=== PATIENT | male | born 1940 | race Caucasian/White ===

== ENCOUNTER → 2018-06-27 | Outpatient (CLI) | payer MEDICARE ==
--- NOTE | 2018-06-27 13:48 | Diagnostic Imaging Report ---
INDICATION: ACUTE UPPER RESPIRATORY INFECTION COMPARISON: None FINDINGS: Frontal and lateral views of the chest demonstrate normal heart size and pulmonary vascularity. Lung chairez suggest increase parenchymal opacities within the right lower lobe suggestive of pneumonia. Left lung is relatively clear. No large effusion or pneumothorax is seen on either side. Bony structures show no gross acute abnormalities. IMPRESSION: 1. Findings suspicious for right lower lobe pneumonia. Followup to resolution is recommended. Dictated by: Dictated on workstation # [id number]
== END ==
LOC: RAD FS 13:25
PROVIDERS: ATTEND Internal Medicine
DX: J06.9 Acute upper respiratory infection, unspecified (principal)
CPT/HCPCS: 71046

== ENCOUNTER → 2018-07-04 | Outpatient (CLI) | payer MEDICARE ==
--- NOTE | 2018-07-04 14:37 | Diagnostic Imaging Report ---
Indication: Pneumonia followup. Compared: 06/27/2018 Right lower lobe infiltrate is improved but incompletely resolved. There are background changes of COPD chronic. There is no effusion or pneumothorax. There is no failure pattern. Impression: Improvements but incompletely resolved right lower lobe pneumonia with no adverse interval development. Chronic COPD as a stable background finding noted. Dictated by: Dictated on workstation # [id number]
== END ==
LOC: RAD FS 13:54
PROVIDERS: ATTEND Internal Medicine
DX: J18.1 Lobar pneumonia, unspecified organism (principal); J44.9 Chronic obstructive pulmonary disease, unspecified
CPT/HCPCS: 71046

== ENCOUNTER → 2018-07-20 | Outpatient (CLI) | payer MEDICARE ==
--- NOTE | 2018-07-20 09:28 | Diagnostic Imaging Report ---
Indication: Pneumonia Comparison made with prior examination from 07/04/2018 Findings: There is COPD. Heart size is stable. The mediastinum is unremarkable. Persistent patchy right base infiltrate although there has been continual improvement. There is no pneumothorax. IMPRESSION: Continual improvement of the right lower lobe infiltrate. COPD. Dictated by: Dictated on workstation # [id number]
== END ==
LOC: RAD FS 08:26
PROVIDERS: ATTEND Internal Medicine
DX: J18.9 Pneumonia, unspecified organism (principal); J44.9 Chronic obstructive pulmonary disease, unspecified
CPT/HCPCS: 71046

== ENCOUNTER 2018-11-27 10:19 | Emergency (ER) | payer MEDICARE ==
[~2018-11-27] VITALS: Ht 167.6 cm; Wt 63.5 kg
--- NOTE | 2018-11-27 10:32 | ED Neurological Problem ---
General Source: patient, family, EMS Exam Limitations: no limitations History of Present Illness Date Seen by Provider: Nov 27, 2018 Time Seen by Provider: 10:27 Initial Comments This 78-year-old white male presents after a syncopal episode occurred at [facility] this morning with associated questionable seizure activity. The patient was sitting in a chair when he began to feel weak and then became unresponsive for approximately 30 seconds. There was no post ictal phase. Patient denies associated headache or lateralizing or localizing neurologic complaints. He denied palpitations or chest pain. He had no vomiting. On arrival to emergency department patient was awake and alert and had no residual symptoms. The patient has been having similar but less intense episodes for the last 3 years that appear to be progressive in nature. In addition the patient is having episodes of transient confusion. 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 Patient's father suffered from vascular dementia and mini strokes. The patient's past medical history other than hypothyroidism is essentially unremarkable. Patient is followed by his accounts receivable coordinator at [facility]. Allergies and Home Medications Allergies Coded Allergies: No Known Drug Allergies (Unverified , 11/27/18) Patient Home Medication List Home Medication List Reviewed: Yes Review of Systems Review of Systems Constitutional: see HPI; No chills; weakness Eyes: Blurred Vision Ears, Nose, Mouth, Throat: denies ear pain Respiratory: No cough Cardiovascular: No chest pain, No palpitations Gastrointestinal: No abdominal pain, No diarrhea, No nausea, No vomiting Genitourinary: no symptoms reported Musculoskeletal: no symptoms reported Skin: no symptoms reported Psychiatric/Neurological: Tonic Clonic Seizures (patient sustained a possible seizure at the time of the syncope.), Weakness Endocrine: No Symptoms Reported Hematologic/Lymphatic: No Symptoms Reported Past [id number] Hx Past Med/Social Hx: Reviewed Nursing Past Med/Soc Hx Physical Exam Vital Signs Capillary Refill : Height, Weight, BMI Height: '" Weight: lbs. oz. kg; BMI Method: General Appearance: WD/WN, no apparent distress HEENT: normal ENT inspection Neck: full range of motion, supple, normal inspection Respiratory: lungs clear, normal breath sounds, no respiratory distress Cardiovascular: normal peripheral pulses, regular rate, rhythm, no murmur Gastrointestinal: normal bowel sounds, non tender, soft Back: normal inspection, no CVA tenderness Extremities: normal range of motion, non-tender, normal inspection, no pedal edema Neurologic/Psychiatric: no motor/sensory deficits, alert, normal mood/affect, oriented x 3 Crainal Nerves: normal hearing, normal speech, PERRL Skin: normal color, warm/dry; No rash Progress/Results/Core Measures Results/Orders Lab Results Laboratory Tests Test 11/27/18 10:30 11/27/18 11:24 Range/Units White Blood Count 4.9 4.3-11.0 10^3/uL Red Blood Count 4.66 4.35-5.85 10^6/uL Hemoglobin 15.2 13.3-17.7 G/DL Hematocrit 44 40-54 % Mean Corpuscular Volume 94 80-99 FL Mean Corpuscular Hemoglobin 33 25-34 PG Mean Corpuscular Hemoglobin Concent 35 32-36 G/DL Red Cell Distribution Width 11.4 10.0-14.5 % Platelet Count 183 130-400 10^3/uL Mean Platelet Volume 10.2 7.4-10.4 FL Neutrophils (%) (Auto) 64 42-75 % Lymphocytes (%) (Auto) 16 12-44 % Monocytes (%) (Auto) 13 H 0-12 % Eosinophils (%) (Auto) 5 0-10 % Basophils (%) (Auto) 1 0-10 % Neutrophils # (Auto) 3.2 1.8-7.8 X 10^3 Lymphocytes # (Auto) 0.8 L 1.0-4.0 X 10^3 Monocytes # (Auto) 0.7 0.0-1.0 X 10^3 Eosinophils # (Auto) 0.3 0.0-0.3 10^3/uL Basophils # (Auto) 0.1 0.0-0.1 10^3/uL Sodium Level 132 L 135-145 MMOL/L Potassium Level 4.3 3.6-5.0 MMOL/L Chloride Level 92 L 98-107 MMOL/L Carbon Dioxide Level 28 21-32 MMOL/L Anion Gap 12 5-14 MMOL/L Blood Urea Nitrogen 16 7-18 MG/DL Creatinine 1.11 0.60-1.30 MG/DL Estimat Glomerular Filtration Rate > 60 BUN/Creatinine Ratio 14 Glucose Level 135 H 70-105 MG/DL Calcium Level 9.1 8.5-10.1 MG/DL Corrected Calcium 9.1 8.5-10.1 MG/DL Total Bilirubin 0.5 0.1-1.0 MG/DL Aspartate Amino Transf (AST/SGOT) 18 5-34 U/L Alanine Aminotransferase (ALT/SGPT) 18 0-55 U/L Alkaline Phosphatase 77 40-136 U/L Troponin I < 0.30 <0.30 NG/ML Total Protein 6.1 L 6.4-8.2 GM/DL Albumin 4.0 3.2-4.5 GM/DL Urine Color YELLOW Urine Clarity CLEAR Urine pH 7.0 5-9 Urine Specific [place] 1.010 L 1.016-1.022 Urine Protein NEGATIVE NEGATIVE Urine Glucose (UA) NEGATIVE NEGATIVE Urine Ketones NEGATIVE NEGATIVE Urine Nitrite NEGATIVE NEGATIVE Urine Bilirubin NEGATIVE NEGATIVE Urine Urobilinogen 0.2 NORMAL MG/DL Urine Leukocyte Esterase NEGATIVE NEGATIVE Urine RBC (Auto) NEGATIVE NEGATIVE Urine RBC NONE /HPF Urine WBC NONE /HPF Urine Squamous Epithelial Cells 0-2 /HPF Urine Crystals PRESENT H /LPF Urine Amorphous Sediment FEW TONE PHOSPHATE H /LPF Urine Bacteria TRACE /HPF Urine Casts NONE /LPF Urine Mucus NONE /LPF Urine Culture Indicated NO My Orders Orders - SHELTON HAMMOND MD Ct Head Wo (11/27/18 10:48) Troponin I (11/27/18 10:48) Cbc With Automated Diff (11/27/18 10:48) Comprehensive Metabolic Panel (11/27/18 10:48) Ua Culture If Indicated (11/27/18 10:48) Ekg Tracing (11/27/18 10:50) Progress Progress Note : Time: 12:36 Progress Note Patient's workup in the emergency department demonstrated microvascular changes on the CT of the head. I placed a call to the patient's accounts receivable coordinator at [facility], Dr.Marie Loredo, and am awaiting her call. : The patient to follow up closely with her early next week after the holiday weekend. I asked the patient to rest at home and to return if any further episodes. I discussed findings with patient and his . They're in agreement with treatment plan. Departure Impression Primary Impression: Syncope Qualified Codes: R55 - Syncope and collapse Disposition: 01 HOME, SELF-CARE Condition: Improved Departure-Patient Inst. Decision time for Depature: 12:39 Referrals: LITTLE ROD MD (PCP) Primary Care Physician Patient Instructions: Syncope (Fainting) Add. Discharge Instructions: Follow-up with your personal physician after the holiday. Rest at home this weekend. Return if any further episodes. SHELTON HAMMOND MD Nov 27, 2018 10:32
[2018-11-27 10:58] LABS: HEMOGLOBIN 15.2 G/DL (13.3-17.7); MEAN CORPUSCULAR HEMOGLOBIN 33 PG (25-34); WHITE BLOOD COUNT 4.9 10^3/uL (4.3-11.0)
[2018-11-27 10:59] LABS: BASOPHILS % (AUTO) 1 % (0-10); EOSINOPHILS # (AUTO) 0.3 10^3/uL (0.0-0.3); EOSINOPHILS % (AUTO) 5 % (0-10); HEMATOCRIT 44 % (40-54); LYMPHOCYTES # (AUTO) 0.8 X 10^3 (1.0-4.0); LYMPHOCYTES % (AUTO) 16 % (12-44); MEAN CORPUSCULAR HGB CONC 35 G/DL (32-36); MEAN CORPUSCULAR VOLUME 94 FL (80-99); MEAN PLATELET VOLUME 10.2 FL (7.4-10.4); MONOCYTES # (AUTO) 0.7 X 10^3 (0.0-1.0); MONOCYTES % (AUTO) 13 % (0-12); NEUTROPHILS # (AUTO) 3.2 X 10^3 (1.8-7.8); NEUTROPHILS % (AUTO) 64 % (42-75); PLATELET COUNT 183 10^3/uL (130-400); RED CELL DISTRIBUTION WIDTH 11.4 % (10.0-14.5)
[2018-11-27 11:00] LABS: BASOPHILS # (AUTO) 0.1 10^3/uL (0.0-0.1)
--- NOTE | 2018-11-27 11:06 | Diagnostic Imaging Report ---
PROCEDURE: CT head without contrast. TECHNIQUE: Multiple contiguous axial images were obtained through the brain without the use of intravenous contrast. Auto Exposure Controls were utilized during the CT exam to meet ALARA standards for radiation dose reduction. DATE: November 27, 2018. COMPARISON: None. INDICATION: 78-year-old male, near syncope. FINDINGS: There are areas of low attenuation in the periventricular and subcortical white matter which are nonspecific but most likely reflect moderate changes of chronic small vessel ischemic disease. The ventricles and CSF spaces are within normal limits in size and configuration for patient age. There is no mass effect or midline shift. There is no acute intracranial hemorrhage. There is no abnormal extra-axial fluid collection. The visualized portions of the paranasal sinuses, mastoid air cells and middle ears are well aerated. IMPRESSION: 1. No identified acute intra-cranial abnormality. 2. Moderate probable changes of chronic small vessel ischemic disease. Dictated by: Dictated on workstation # [id number]
[2018-11-27 11:17] LABS: CARBON DIOXIDE 28 MMOL/L (21-32); CHLORIDE 92 MMOL/L (98-107); POTASSIUM 4.3 MMOL/L (3.6-5.0); SODIUM 132 MMOL/L (135-145)
[2018-11-27 11:18] LABS: ALANINE AMINOTRANSFERASE 18 U/L (0-55); ALKALINE PHOSPHATASE 77 U/L (40-136); BILIRUBIN,TOTAL 0.5 MG/DL (0.1-1.0); BUN/CREATININE RATIO 14; CALCIUM 9.1 MG/DL (8.5-10.1); CREATININE SERUM 1.11 MG/DL (0.60-1.30); GFR ESTIMATED > 60; GLUCOSE 135 MG/DL (70-105); TOTAL PROTEIN 6.1 GM/DL (6.4-8.2)
[2018-11-27 11:38] LABS: BACTERIA,URINE TRACE /HPF; BILIRUBIN,URINE NEGATIVE (NEGATIVE); CLARITY,URINE CLEAR; COLOR,URINE YELLOW; GLUCOSE, URINE (UA) NEGATIVE (NEGATIVE); KETONES,URINE NEGATIVE (NEGATIVE); LEUKOCYTE ESTERASE ,URINE NEGATIVE (NEGATIVE); NITRITE,URINE NEGATIVE (NEGATIVE); PROTEIN,URINE NEGATIVE (NEGATIVE); SQUAMOUS EPITHELIAL CELL,UR 0-2 /HPF; UROBILINOGEN,URINE 0.2 MG/DL (NORMAL)
[2018-11-27 11:39] LABS: AMORPHOUS SEDIMENT,UR FEW AMOR PHOSPHATE /LPF
[2018-11-27 12:50] VITALS: BP 143/88
--- NOTE | 2018-11-27 12:50 | NUR ---
Pt departed ambulatory accompanied by reporting feeling much better now. Pt remains unchanged NIH score 0. VSS.
[2018-11-27] MEDS ORDERED: LEVO50TA6 PO (13:29)
== END 2018-11-27 12:50 | disposition home or self-care (01) ==
LOC: EDUNIT# 10:20 → ER FS 10:21
DX: R55 Syncope and collapse (principal); E03.9 Hypothyroidism, unspecified
CPT/HCPCS: 36415; 70450; 80053; 81000; 84484; 85025; 93005

== ENCOUNTER 2018-12-07 12:12 | Outpatient (RCR) | payer MEDICARE ==
[~2018-12-07 12:12] MED LIST: LEVO50TA6 PO
[2018-12-20 16:00] LABS: URINE IMMUNOFIXATION W/ INTERP Complete
== END 2019-03-07 | disposition home or self-care (01) ==
LOC: LAB 12:12 → EDSTATUS 12:19
PROVIDERS: ATTEND Internal Medicine
DX: I10 Essential (primary) hypertension (principal); D80.1 Nonfamilial hypogammaglobulinemia
CPT/HCPCS: 36415; 82436; 82570; 84133; 84156; 84166; 84300; 86335

== ENCOUNTER → 2019-08-28 | Outpatient (CLI) | payer MEDICARE ==
[2019-08-28 10:51] LABS: POTASSIUM 3.9 MMOL/L (3.6-5.0)
[2019-08-28 10:52] LABS: CALCIUM 9.3 MG/DL (8.5-10.1)
[2019-08-28 10:57] LABS: CREATININE SERUM 1.2 MG/DL (0.60-1.30)
== END ==
LOC: LAB 10:06
PROVIDERS: ATTEND Internal Medicine
DX: E87.1 Hypo-osmolality and hyponatremia (principal)
CPT/HCPCS: 36415; 80048; 82570; 83930; 84300

== ENCOUNTER → 2020-07-10 | Outpatient (CLI) | payer MEDICARE ==
[2020-07-10 11:28] LABS: BASOPHILS % (AUTO) 1 % (0-10); EOSINOPHILS % (AUTO) 4 % (0-10); HEMATOCRIT 45 % (40-54); HEMOGLOBIN 15.7 G/DL (13.3-17.7); LYMPHOCYTES % (AUTO) 19 % (12-44); MEAN CORPUSCULAR HEMOGLOBIN 33 PG (25-34); MEAN CORPUSCULAR HGB CONC 35 G/DL (32-36); MEAN CORPUSCULAR VOLUME 94 FL (80-99); MEAN PLATELET VOLUME 10.7 FL (7.4-10.4); MONOCYTES % (AUTO) 16 % (0-12); NEUTROPHILS % (AUTO) 60 % (42-75); PLATELET COUNT 158 10^3/uL (130-400); WHITE BLOOD COUNT 4.4 10^3/uL (4.3-11.0)
[2020-07-10 11:29] LABS: BASOPHILS # (AUTO) 0.1 10^3/uL (0.0-0.1); EOSINOPHILS # (AUTO) 0.2 10^3/uL (0.0-0.3); LYMPHOCYTES # (AUTO) 0.8 X 10^3 (1.0-4.0); MONOCYTES # (AUTO) 0.7 X 10^3 (0.0-1.0); NEUTROPHILS # (AUTO) 2.6 X 10^3 (1.8-7.8)
[2020-07-10 11:36] LABS: BUN/CREATININE RATIO 17; CARBON DIOXIDE 27 MMOL/L (21-32); CHLORIDE 100 MMOL/L (98-107); GFR ESTIMATED > 60; GLUCOSE 96 MG/DL (70-105); POTASSIUM 4.2 MMOL/L (3.6-5.0); SODIUM 138 MMOL/L (135-145)
[2020-07-10 11:37] LABS: CALCIUM 9.5 MG/DL (8.5-10.1)
== END ==
LOC: LAB FS 10:47
DX: E87.1 Hypo-osmolality and hyponatremia (principal); E83.119 Hemochromatosis, unspecified
CPT/HCPCS: 36415; 80048; 82728; 83540; 83550; 84443; 85025

== ENCOUNTER → 2020-08-27 | Outpatient (CLI) | payer MEDICARE ==
[2020-08-27 08:54] LABS: HEMATOCRIT 48 % (40-54); HEMOGLOBIN 16.5 G/DL (13.3-17.7); MEAN CORPUSCULAR HEMOGLOBIN 33 PG (25-34); MEAN CORPUSCULAR HGB CONC 35 G/DL (32-36); MEAN CORPUSCULAR VOLUME 96 FL (80-99); WHITE BLOOD COUNT 3.7 10^3/uL (4.3-11.0)
[2020-08-27 08:55] LABS: BASOPHILS # (AUTO) 0.1 10^3/uL (0.0-0.1); BASOPHILS % (AUTO) 1 % (0-10); EOSINOPHILS # (AUTO) 0.2 10^3/uL (0.0-0.3); EOSINOPHILS % (AUTO) 5 % (0-10); LYMPHOCYTES # (AUTO) 0.7 X 10^3 (1.0-4.0); LYMPHOCYTES % (AUTO) 19 % (12-44); MEAN PLATELET VOLUME 10.6 FL (7.4-10.4); MONOCYTES % (AUTO) 12 % (0-12); NEUTROPHILS # (AUTO) 2.3 X 10^3 (1.8-7.8); NEUTROPHILS % (AUTO) 63 % (42-75); PLATELET COUNT 150 10^3/uL (130-400)
[2020-08-27 09:21] LABS: CALCIUM 9.4 MG/DL (8.5-10.1); CREATININE SERUM 1.18 MG/DL (0.60-1.30); POTASSIUM 3.7 MMOL/L (3.6-5.0)
== END ==
LOC: LAB FS 08:24
PROVIDERS: ATTEND Internal Medicine
DX: E83.119 Hemochromatosis, unspecified (principal); E87.1 Hypo-osmolality and hyponatremia
CPT/HCPCS: 36415; 80048; 82728; 83540; 83550; 84443; 85025

== ENCOUNTER → 2022-03-04 | Outpatient (CLI) | payer MEDICARE ==
[~2022-03-04] MED LIST changes: +BARIUM for suspension 96% w/w (Vanilla Silq Medium Density) PO ONE; +BARIUM for suspension 98% w/w (Vanilla Silq High Density) PO ONE
--- NOTE | 2022-03-04 10:00 | Diagnostic Imaging Report ---
INDICATION: Increased mucus production. Patient ingested effervescent crystals as well as thin and thick barium and imaging of the esophagus was performed in multiple obliquities. Total 45 seconds of fluoroscopic time was utilized. There is some generalized esophageal dysmotility with occasional tertiary contractions present. There is a short segment of luminal narrowing of the distal esophagus near the GE junction which appears be fairly fixed, may represent a short stricture. No obstruction to the flow of contrast is identified however. No gastroesophageal reflexes identified. No significant hiatal hernia is identified. IMPRESSION: There is generalized esophageal dysmotility. There is short segment of luminal narrowing of the distal esophagus which may represent a short stricture. No other significant abnormalities detected. Dictated by: Dictated on workstation # [id number]
== END ==
LOC: RAD 09:00
PROVIDERS: ATTEND Internal Medicine
DX: K22.4 Dyskinesia of esophagus (principal)
CPT/HCPCS: 74220